=== PATIENT | male | born 1970 | race Hispanic/Latino ===

== ENCOUNTER 2016-12-19 22:39 | Emergency (ER) | payer SELFPAY ==
[~2016-12-19] VITALS: Ht 167.6 cm; Wt 76.8 kg
[~2016-12-19 22:39] MED LIST: NAPROSYN500 MG OR; NO MEDS
[2016-12-19 23:48] LABS: HEMOGLOBIN 14.9 g/dl (14.0-18.0); IMMATURE GRANULOCYTES 0.3 % (0.0-1.0); MEAN CELL VOLUME 81.6 fL CALC (80.0-100.0); MEAN CORPUSCULAR HGB 28.3 pG CALC (26.0-32.0); MEAN CORPUSCULAR HGB CONC 34.7 g/L CALC (32.0-36.0); NEUT# 10.44 thou/uL (1.82-7.42); RED BLOOD COUNT 5.27 mill/uL (4.70-6.10); RED CELL DISTRI WIDTH 12.8 % (11.5-15.5)
[2016-12-20 00:34] LABS: ALBUMIN 4.6 g/dL (3.2-5.0); ALKALINE PHOSPHATASE 74 u/l (38-126); ANION GAP 17 (6-22 (CALC)); BILIRUBIN, TOTAL 1.9 mg/dL (0.0-1.4); BUN 18 mg/dL (9-20); BUN/CREATININE RATIO 21 (12-20 (CALC)); CALCIUM 9.1 mg/dL (8.4-10.2); CARBON DIOXIDE 26 mmol/l (22-30); CHLORIDE 105 mmol/l (95-108); CREATININE 0.8 mg/dL (0.7-1.3); GFR > 60 ML/MIN (>=60 (CALC)); GFR FOR AFR.AMER. > 60 ML/MIN (>=60 (CALC)); GLUCOSE 128 mg/dL (75-110); POTASSIUM 3.8 mmol/l (3.5-5.1); SGOT/AST 27 u/l (17-59); SGPT/ALT 47 u/l (21-72); SODIUM 144 mmol/l (137-146); TOTAL PROTEIN 7.6 g/dL (6.3-8.2)
[2016-12-20 01:30] VITALS: BP 132/77
== END 2016-12-20 02:00 | disposition home or self-care (01) | DRG 158 ==
LOC: ED 22:39
PROVIDERS: Emergency Medicine
DX: K06.8 Other specified disorders of gingiva and edentulous alveolar ridge (principal); K91.89 Other postprocedural complications and disorders of digestive system; K08.89 Other specified disorders of teeth and supporting structures; Y83.8 Other surgical procedures as the cause of abnormal reaction of the patient, or of later complication, without mention of misadventure at the time of the procedure; Y92.89 Other specified places as the place of occurrence of the external cause

== ENCOUNTER 2022-07-07 09:53 | Emergency (ER) | payer OTHER ==
[~2022-07-07] VITALS: Ht 167.6 cm; Wt 69.0 kg
[2022-07-07 10:05] VITALS: BP 130/90
[2022-07-07] MEDS ORDERED: TRAZODONE50 MG PO (10:28)
[2022-07-07] MEDS ORDERED: MIRALAX17 GM (10:28)
[2022-07-07] MEDS ORDERED: [UNRECOGNIZED DRUG - OTHER] (10:29)
[2022-07-07 10:30] VITALS: BP 120/85
[2022-07-07] MEDS ORDERED: PANTOPRAZOLE SO40 M1 PO (10:30)
[2022-07-07] MEDS ORDERED: GABAPENTIN300 M2 ×2 (10:30→10:31)
[2022-07-07 11:00] VITALS: BP 123/97
[2022-07-07 11:11] LABS: URINE BILIRUBIN - DIPSTICK NEGATIVE (NEGATIVE); URINE BLOOD DIPSTICK LARGE (NEGATIVE); URINE COLOR YELLOW; URINE GLUCOSE - DIPSTICK NEGATIVE (NEGATIVE); URINE KETONE NEGATIVE (NEGATIVE); URINE PH 7.5 (4.5-8.0); URINE PROTEIN - DIPSTICK 30 mg/dL (NEG-TRACE)
[2022-07-07 11:12] LABS: URINE LEUK ESTERASE SMALL (NEGATIVE); URINE NITRITE - DIPSTICK POSITIVE (Negative)
[2022-07-07 11:17] LABS: URINE BACTERIA FEW hpf; URINE RBC 25-50 RBC/hpf (0-5)
[2022-07-07 11:18] LABS: URINE AMORPH SEDIMENT MANY hpf (NONE-FER)
[2022-07-07 11:30] VITALS: BP 115/84
[2022-07-07 12:01] VITALS: BP 109/66
[2022-07-07] MEDS ORDERED: KEFLEX500 MG PO (12:09)
[2022-07-07 12:12] VITALS: BP 109/66
== END 2022-07-07 12:44 | disposition home or self-care (01) | DRG 690 ==
LOC: ED 09:53
PROVIDERS: Emergency Medicine
PROC: 0T2BX0Z Change Drainage Device in Bladder, External Approach (ICD-10-PCS; principal; 2022-07-07)
DX: N39.0 Urinary tract infection, site not specified (principal); Z16.12 Extended spectrum beta lactamase (ESBL) resistance; B96.20 Unspecified Escherichia coli [E. coli] as the cause of diseases classified elsewhere; Z98.890 Other specified postprocedural states; Z96.0 Presence of urogenital implants